=== PATIENT | female | born 1975 | race Caucasian/White ===

== ENCOUNTER → 2018-08-12 | Outpatient (CLI) | payer OTHER ==
[2015-12-23 17:22] VITALS: BMI 31.9
[~2018-08-12] MED LIST: ACET-1718 PO; ACET-3017 PO; FLUC150T40 PO; FLUO20DR3 OT; IBUP800T37 PO; PNV1TABL77 PO
--- NOTE | 2018-08-13 14:47 | RADIOLOGY IMAGING REPORT ---
FACILITY: [facility] PATIENT NAME: RASHID NAVAS : [id number] MR: [id number] V: [id number] EXAM DATE: [id number] ORDERING PHYSICIAN: SWATI BELTRAN TECHNOLOGIST: Rosanne Mojica PROCEDURE: BILATERAL DIGITAL SCREENING MAMMOGRAM WITH CAD ASSISTED INTERPRETATION & 3D TOMOSYNTHESIS REASON FOR STUDY: Screening. FAMILY HISTORY OF BREAST CANCER: BREAST PROCEDURES/TREATMENTS: COMPARISON: Prior mammogram 06/06/2012. VIEWS OBTAINED: 2D & 3D full field CC & MLO. BREAST DENSITY: The breast tissue is heterogeneously dense. MAMMOGRAM FINDINGS: There is no suspicious mass, calcification, or architectural distortion. IMPRESSION: BIRADS 1: Negative. No mammographic evidence for malignancy. DIAGNOSTIC CATEGORY 1--NEGATIVE. RECOMMENDATIONS: ROUTINE MAMMOGRAM AND CLINICAL EVALUATION IN 1 YEAR. Dictated by: Herb Brunson M.D. on 08/13/2018 at 13:10 Transcribed by: ARGENIS on 08/13/2018 at 14:27 Approved by: Herb Brunson M.D. on 08/13/2018 at 14:46 [facility]
== END ==
LOC: MAMO 00:36
PROVIDERS: ATTEND Obstetrics & Gynecology
DX: Z12.31 Encounter for screening mammogram for malignant neoplasm of breast (principal); Z80.3 Family history of malignant neoplasm of breast
CPT/HCPCS: 77063; 77067

== ENCOUNTER → 2018-09-29 | Outpatient (CLI) | payer OTHER ==
[2015-12-23 17:22] VITALS: BMI 31.9
[~2018-09-29] MED LIST changes: +TRAN650T5 PO
[2018-09-29 14:13] LABS: PLATELET COUNT, AUTOMATED 233 K/uL (150-450)
== END ==
LOC: LAB 13:47
PROVIDERS: ATTEND Obstetrics & Gynecology
DX: N92.0 Excessive and frequent menstruation with regular cycle (principal)
CPT/HCPCS: 36415; 85025

== ENCOUNTER → 2018-10-02 | Outpatient (CLI) | payer OTHER ==
[2015-12-23 17:22] VITALS: BMI 31.9
--- NOTE | 2018-10-02 16:24 | RADIOLOGY IMAGING REPORT ---
FACILITY: [facility] - [place] PATIENT NAME: Viki De Paz : 1975 MR: [id number] V: [id number] EXAM DATE: ORDERING PHYSICIAN: AMY MAGUIRE TECHNOLOGIST: Location: [facility] [place] Patient: Viki De Paz : 1975 Visit/Account:[id number] Date of Sevice: 10/02/2018 TRANSVAGINAL NON-OB HISTORY: EXCESSIVE AND FREQUENT MENSTRUATION WITH REGULAR CYCLE TECHNIQUE: Transvaginal ultrasound pelvis. COMPARISON: None. FINDINGS: Uterus: Anteverted; 8.2 cm length x 4.9 cm AP x 5.2 cm transverse. Myometrium: Unremarkable. Endometrium: Unremarkable; double thickness 5.4 mm. Cervix: Grossly negative. Ovaries: Right - 2.9 x 2.5 x 2.1 cm Left - 3.2 x 2.2 x 1.9 cm Blood flow is documented in each ovary by duplex Doppler ultrasound. Adnexa: Grossly unremarkable. Free pelvic fluid: None. IMPRESSION: Normal pelvic ultrasound. Report Dictated By: Herb Brunson at 10/02/2018 4:09 PM Report E-Signed By: Herb Brunson at 10/02/2018 4:18 PM WSN:[email or web address]
== END ==
LOC: US 00:25
PROVIDERS: ATTEND Obstetrics & Gynecology
DX: N92.0 Excessive and frequent menstruation with regular cycle (principal)
CPT/HCPCS: 76830